=== PATIENT | male | born 1975 | race Caucasian/White ===

== ENCOUNTER 2024-02-11 11:46 | Emergency (ER) | payer BC, OTHER ==
[2024-02-11 12:29] LABS: Absolute Eosinophils 0.1 K/uL (0-0.5); Absolute Lymphocytes (CBC) 1.6 K/uL (0.7-4.9); Absolute Monocytes 0.3 K/uL (0.1-1.3); Absolute Neutrophil 3.1 K/uL (1.8-8.0); Basophils % 0.4 % (0-1.3); Eosinophils % 2.2 % (0-4.4); Hematocrit 49.6 % (39.6-49.0); MCHC 34.2 g/dL (32.0-36.0); MCV 96.3 fL (80-100); MPV 7.6 fL (7.6-11.3); Monocytes % 6.6 % (3.3-12.3); Neutrophils % 59.8 % (41.7-73.7); Nucleated Red Blood Cells % 0.1 % (0-0); Platelets 283 thou/uL (152-406); RBC Red Blood Cell Count 5.15 M/uL (4.33-5.43); Red Cell Distribution Width 13.3 % (12.1-15.2)
[2024-02-11 12:34] LABS: PT Prothrombin Time 11.4 SECONDS (9.4-12.5); PTT, Activated Partial Thromb 33.2 SECONDS (24.3-36.9); Protime INR 1.02
[2024-02-11 12:55] LABS: ALT/SGPT 56 U/L (16-61); AST/SGOT 23 U/L (15-37); Albumin 4.2 g/dL (3.4-5.0); Albumin/Globulin Ratio 1.1 (1.1-1.8); Alkaline Phosphatase 67 U/L (45-117); Anion Gap 7.6 mEq/L (5.0-15.0); BUN Blood Urea Nitrogen 17 mg/dL (7-18); Bicarbonate 28 mEq/L (21-32); Bilirubin Total 0.6 mg/dL (0.2-1.0); Globulin 3.8 g/dL (2.3-3.5); Glomerular Filtration Rate 81 ml/min (=/>90); Glucose Level 118 mg/dL (74-106); Potassium 3.6 mEq/L (3.5-5.1); Sodium Level 136 mEq/L (136-145)
[2024-02-11 12:56] LABS: Bilirubin Direct < 0.2 mg/dL (0-0.2); Bilirubin Indirect, Calculated 0.4 mg/dL (0.2-0.8)
--- NOTE | 2024-02-11 14:39 | EDPHYS ---
Physician Documentation [facility] Name: Jimmy Patel Age: 48 yrs Sex: Male : 1975 Arrival Date: 02/11/2024 Time: 11:46 Bed 20 Private MD: ED Physician Arvind Reynolds HPI: 02/10 14:17 This 48 yrs old Male presents to ER via EMS with complaints of Suicidal Ideation. rn 14:17 The patient presents to the emergency department with depression, suicide ideation. rn Onset: The symptoms/episode began/occurred this morning. Severity of symptoms: At their worst the symptoms were moderate in the emergency department the symptoms are unchanged. The patient has experienced similar episodes in the past. Patient reports suicidal ideations and took several of his prescription pills this morning around 6 to 7 AM. Intent was to kill himself. Reports has hang himself in the past. Denies any fever or chills. No head injury. No focal neurological deficit. Feels a little sleepy but otherwise feels okay. States took multiple propranolol tablets at 6 AM.. Historical: - Home Meds: 12:08 propranolol 10 mg Oral tablet 1 tab 2 times per day [Active]; modafinil 100 mg oral mb9 tablet [Active]; lorazepam Oral [Active]; 19:30 citalopram 40 mg tablet [Active]; rg5 19:31 lamotrigine 250 mg oral Tablet, Extended Release 24 hr 1 tab [Active]; rg5 19:33 aripiprazole 5 mg oral tablet [Active]; rg5 - PMHx: 12:08 Hypertensive disorder; Bipolar disorder; Depressive disorder; mb9 - PSHx: 12:08 None; mb9 - Immunization history:: Adult Immunizations up to date. - Infectious Disease History:: Denies. - Social history:: Smoking status: Patient denies any tobacco usage or history of. - Family history:: not pertinent. - Hospitalizations: : No recent hospitalization is reported. ROS: 14:17 Constitutional: Negative for fever, chills, and weight loss, Eyes: Negative for injury, rn pain, redness, and discharge, Neck: Negative for injury, pain, and swelling, Cardiovascular: Negative for chest pain, palpitations, and edema, Respiratory: Negative for shortness of breath, cough, wheezing, and pleuritic chest pain, Abdomen/GI: Negative for abdominal pain, nausea, vomiting, diarrhea, and constipation, Back: Negative for injury and pain, MS/Extremity: Negative for injury and deformity, Skin: Negative for injury, rash, and discoloration, Neuro: Negative for headache, weakness, numbness, tingling, and seizure, Psych: Positive for suicidal ideations and depression Exam: 14:17 Constitutional: This is a well developed, well nourished patient who is awake, alert, rn and in no acute distress. Head/Face: Normocephalic, atraumatic. Eyes: Pupils equal round and reactive to light, extra-ocular motions intact. ENT: Dry mucous membranes Neck: No meningismus Chest/axilla: Normal chest wall appearance and motion. Nontender with no deformity. No lesions are appreciated. Cardiovascular: Regular rate and rhythm. No pulse deficits. Respiratory: No increased work of breathing, no retractions or nasal flaring. Abdomen/GI: Soft, non-tender MS/ Extremity: Pulses equal, no cyanosis. Neurovascular intact. Full, normal range of motion. Equal circumference. Neuro: Awake and alert, GCS 15, oriented to person, place, time, and situation. Cranial nerves II-XII grossly intact. Motor strength 5/5 in all extremities. Sensory grossly intact. Cerebellar exam normal. 16:20 ECG was reviewed by the Attending Physician. rn Vital Signs: 11:49 BP 113 / 84; Pulse 73; Resp 16; Temp 98; Pulse Ox 100% on R/A; Weight 89.81 kg; Height mb9 6 ft. 0 in. ; Pain 0/10; 12:26 BP 110 / 78; Pulse 71; Resp 15; Pulse Ox 100% on R/A; mb9 13:18 BP 107 / 79; Pulse 70; Resp 15; Pulse Ox 100% on R/A; mb9 14:58 BP 111 / 80; Pulse 67; Resp 16; Pulse Ox 100% on R/A; mb9 16:14 BP 120 / 82; Pulse 62; Resp 16; Pulse Ox 100% on R/A; mb9 17:58 BP 114 / 80; Pulse 71; Resp 16; Pulse Ox 100% on R/A; mb9 18:56 BP 112 / 72; Pulse 69; Resp 16; Pulse Ox 96% on R/A; mb9 19:00 BP 114 / 75; Pulse 75; Resp 13; Pulse Ox 97% on R/A; rg5 20:00 BP 118 / 82; Pulse 96; Resp 14; Pulse Ox 96% on R/A; rg5 21:00 BP 105 / 68; Pulse 63; Resp 17; Pulse Ox 94% on R/A; rg5 22:00 BP 94 / 67; Pulse 54; Resp 16; Pulse Ox 96% on R/A; rg5 23:00 BP 104 / 75; Pulse 53; Resp 17; Pulse Ox 96% on R/A; rg5 1001 00:00 BP 92 / 64; Pulse 52; Resp 15; Pulse Ox 96% on R/A; rg5 01:00 BP 96 / 71; Pulse 49; Resp 13; Pulse Ox 96% on R/A; rg5 02:00 BP 97 / 66; Pulse 54; Resp 16; Pulse Ox 97% on R/A; rg5 03:00 BP 92 / 64; Pulse 60; Resp 15; Pulse Ox 95% on R/A; rg5 04:00 BP 96 / 67; Pulse 54; Resp 17; Pulse Ox 93% on R/A; rg5 05:00 BP 93 / 47; Pulse 54; Resp 14; Pulse Ox 94% on R/A; rg5 06:48 BP 112 / 63; Pulse 60; Resp 16; Pulse Ox 98% on R/A; Pain 0/10; rg5 12:15 BP 108 / 60; Pulse 60; Resp 16; Temp 98; Pulse Ox 100% ; mb9 12:38 BP 117 / 94; Pulse 63; Resp 16; Pulse Ox 100% on R/A; [facility] 02/10 11:49 Body Mass Index 26.85 (89.81 kg, 182.88 cm) [facility] 02/10 11:49 Pain Scale: Adult 9 06:48 Pain Scale: Adult [facility] MDM: 02/10 11:51 Patient medically screened. rn 14:37 Differential diagnosis: Suicidal ideation, depression. rn 14:38 Data reviewed: vital signs, nurses notes, lab test result(s), EKG, and as a result, I rn will admit patient. Consideration of Admission/Observation Patient was admitted/placed on observation. Escalation of care including admission/observation considered. Counseling: I had a detailed discussion with the patient and/or guardian regarding the historical points, exam findings, and any diagnostic results supporting the discharge/admit diagnosis, lab results, the need to transfer to another facility, [facility] does not immediately have the required specialist. 18:44 ED course: Patient is medically cleared for transfer. rn 02/10 11:54 Order name: Acetaminophen; Complete Time: 14:37 rn 02/10 11:54 Order name: Basic Metabolic Panel; Complete Time: 14:37 rn 02/10 11:54 Order name: CBC with Diff; Complete Time: 14:37 rn 02/10 11:54 Order name: ETOH Level; Complete Time: 14:37 rn 02/10 11:54 Order name: Hepatic Function; Complete Time: 14:37 rn 02/10 11:54 Order name: PT-INR; Complete Time: 14:37 rn 02/10 11:54 Order name: Ptt, Activated; Complete Time: 14:37 rn 02/10 11:54 Order name: Salicylate; Complete Time: 14:37 rn 02/10 11:54 Order name: Urinalysis w/ reflexes; Complete Time: 16:59 rn 02/10 11:54 Order name: Urine Drug Screen; Complete Time: 16:59 rn 02/10 16:59 Order name: ETOH Level; Complete Time: 18:44 rn 02/10 11:54 Order name: EKG; Complete Time: 11:54 rn 02/10 11:54 Order name: EKG - Nurse/Tech; Complete Time: 12:13 rn 02/10 11:54 Order name: IV Saline Lock; Complete Time: 12:13 rn 02/10 11:54 Order name: Labs collected and sent; Complete Time: 12:13 rn 02/10 11:54 Order name: Suicide Precautions; Complete Time: 12:13 rn 02/10 11:54 Order name: Suicide Screening ([place]); Complete Time: 12:13 rn EC:20 Rate is 71 beats/min. Rhythm is regular. QRS [place] is Normal. WI interval is normal. QRS rn interval is normal. QT interval is normal. No Q waves. T waves are Normal. Clinical impression: NSR w/ Non-specific ST/T Changes. Interpreted by me. Reviewed by me. Administered Medications: No medications were administered Disposition Summary: 02/11/24 14:38 Transfer Ordered Notes: Transfer Location: [facility] Facility rn Reason: Higher level of care rn Condition: Stable rn Problem: new rn Symptoms: are unchanged rn Accepting Physician: (02/12/24 12:41) shantell Diagnosis - Suicidal ideations rn Forms: - Medication Reconciliation Form rn - SBAR form rn Signatures: Dispatcher [employer] EDMS Arvind Reynolds MD MD rn Wilkerson, Candice Flores, RN RN mb9 Eran Jones, RN RN rg5 Corrections: (The following items were deleted from the chart) 11:54 11:54 ACETAMINOPHEN+C.LAB.BRZ ordered. EDMS EDMS 11:54 11:54 BASIC METABOLIC PANEL+C.LAB.BRZ ordered. EDMS EDMS 11:54 11:54 CBC+H.LAB.BRZ ordered. EDMS EDMS 11:54 11:54 ETHANOL+C.LAB.BRZ ordered. EDMS EDMS 11:54 11:54 HEPATIC FUNCTION+C.LAB.BRZ ordered. EDMS EDMS 11:54 11:54 PROTIME (+INR)+COAG.LAB.BRZ ordered. EDMS EDMS 11:54 11:54 PTT, ACTIVATED+COAG.LAB.BRZ ordered. EDMS EDMS 11:54 11:54 SALICYLATE+C.LAB.BRZ ordered. EDMS EDMS 11:54 11:54 Urinalysis+U.LAB.BRZ ordered. EDMS EDMS 11:54 11:54 URINE DRUG SCREEN+UC.LAB.BRZ ordered. EDMS EDMS 19:34 12:08 Allergies: No Known Allergies; mb9 rg5 19:34 19:30 Allergies: citalopram; rg5 rg5 02/11 12:41 02/10 14:38 rn mb9
--- NOTE | 2024-02-11 14:39 | ER ---
Nurse's Notes [facility] Name: Jimmy Patel Age: 48 yrs Sex: Male : 1975 Arrival Date: 02/11/2024 Time: 11:46 Bed 20 Private MD: Diagnosis: Suicidal ideations Presentation: 02/10 11:49 Chief complaint: EMS states: "[place], mb9 rupesh noted to family, and wanting to kill himself. Pt states at 0600 am he took 30 Propranolol, 4 Modafinil, and 6 Lorazepam, and had 4 whiskey/coke drinks. SUZANNE present on pt.". 11:49 Acuity: SHRUTHI 2 mb9 11:49 Coronavirus screen: Vaccine status: Patient reports receiving the 2nd dose of the covid mb9 vaccine. Ebola Screen: No symptoms or risks identified at this time. Initial Sepsis Screen: Does the patient meet any 2 criteria? No. Patient's initial sepsis screen is negative. Does the patient have a suspected source of infection? No. Patient's initial sepsis screen is negative. Risk Assessment: Do you want to hurt yourself or someone else? Patient reports desire/thoughts of hurting themselves or someone else. Provider notified. Onset of symptoms was February 11, 2024. 11:49 Method Of Arrival: EMS: [facility] mb9 Triage Assessment: 11:49 General: Appears distressed, Behavior is drowsy. mb9 11:49 Pain: Denies pain. EENT: No signs and/or symptoms were reported regarding the EENT mb9 system. Neuro: Tucker Agitation-Sedation Scale (RASS): -1 Drowsy Level of Consciousness is awake, alert, obeys commands, Oriented to person, place, time, situation. Cardiovascular: Patient's skin is warm and dry. Rhythm is regular. Respiratory: Airway is patent Respiratory effort is even, unlabored, Respiratory pattern is regular, symmetrical. GI: No signs and/or symptoms were reported involving the gastrointestinal system. : No signs and/or symptoms were reported regarding the genitourinary system. Derm: Skin is pink, warm \\T\\ dry. Musculoskeletal: Range of motion: intact in all extremities. Historical: - Home Meds: 12:08 propranolol 10 mg Oral tablet 1 tab 2 times per day [Active]; modafinil 100 mg oral mb9 tablet [Active]; lorazepam Oral [Active]; 19:30 citalopram 40 mg tablet [Active]; rg5 19:31 lamotrigine 250 mg oral Tablet, Extended Release 24 hr 1 tab [Active]; rg5 19:33 aripiprazole 5 mg oral tablet [Active]; rg5 - PMHx: 12:08 Hypertensive disorder; Bipolar disorder; Depressive disorder; mb9 - PSHx: 12:08 None; mb9 - Immunization history:: Adult Immunizations up to date. - Infectious Disease History:: Denies. - Social history:: Smoking status: Patient denies any tobacco usage or history of. - Family history:: not pertinent. - Hospitalizations: : No recent hospitalization is reported. Screenin:12 [facility] ED Fall Risk Assessment (Adult) History of falling in the last 3 months, mb9 including since admission No falls in past 3 months (0 pts) Confusion or Disorientation No (0 pts) Intoxicated or Sedated Yes (3 pts) Impaired Gait No (0 pts) Mobility Assist Device Used No (0 pt) Altered Elimination No (0 pt) Score/Fall Risk Level 3 or more points = High Risk Oriented to surroundings, Maintained a safe environment, Educated pt \\T\\ family on fall prevention, incl call for assistance when getting out of bed. Abuse screen: Denies threats or abuse. Nutritional screening: No deficits noted. Tuberculosis screening: No symptoms or risk factors identified. Assessment: 11:49 Reassessment: SI precautions in place. Sitter at bedside. mb9 12:00 Reassessment: Pt belongings sent with security along with checklist. 9 12:23 Reassessment: CONTACT WITH POISON CONTROL: LISE CASE # [id number]. RECOMMEND OBS FOR 8 bp HOUR POST INGESTION WITH MONITORING FOR EKG CHANGES AND HYPOTENSION. 12:49 Reassessment: Patient is alert, oriented x 3, equal unlabored respirations, skin mb9 warm/dry/pink. SI precautions in place. Sitter at bedside. 13:49 Reassessment: Patient appears in no apparent distress at this time. Patient is alert, mb9 oriented x 3, equal unlabored respirations, skin warm/dry/pink. SI precautions in place. Sitter at bedside. 14:49 Reassessment: Patient appears in no apparent distress at this time. Patient is alert, mb9 oriented x 3, equal unlabored respirations, skin warm/dry/pink. SI precautions in place. Sitter at bedside. 15:00 Reassessment: at bedside. mb9 15:49 Reassessment: Patient is alert, oriented x 3, equal unlabored respirations, skin mb9 warm/dry/pink. SI precautions in place. Sitter at bedside. 16:49 Reassessment: Patient appears in no apparent distress at this time. Patient is alert, mb9 oriented x 3, equal unlabored respirations, skin warm/dry/pink. SI precautions in place. Sitter at bedside. 17:49 Reassessment: Patient is alert, oriented x 3, equal unlabored respirations, skin mb9 warm/dry/pink. SI precautions in place. Sitter at bedside. 18:49 Reassessment: Patient appears in no apparent distress at this time. Patient is alert, mb9 oriented x 3, equal unlabored respirations, skin warm/dry/pink. SI precautions in place. Sitter at bedside. 19:05 General: Appears in no apparent distress. comfortable, Behavior is calm, cooperative. rg5 19:05 Pain: Denies pain. Neuro: Reports suicidal ideation. Cardiovascular: Patient's skin is rg5 warm and dry. Respiratory: Airway is patent Trachea midline Respiratory effort is even, unlabored, Respiratory pattern is regular, symmetrical. GI: Abdomen is round non-distended. : No signs and/or symptoms were reported regarding the genitourinary system. EENT: No deficits noted. Derm: Skin is intact, Skin is dry, Skin is normal, Skin temperature is warm. Musculoskeletal: Circulation, motion, and sensation intact. Range of motion: intact in all extremities. 19:10 Reassessment: Nisreen Jorge - [phone]. rg5 20:00 Reassessment: No changes from previously documented assessment. Patient and/or family rg5 updated on plan of care and expected duration. Pain level reassessed. Patient is alert, oriented x 3, equal unlabored respirations, skin warm/dry/pink. 22:00 Reassessment: No changes from previously documented assessment. Patient and/or family rg5 updated on plan of care and expected duration. Pain level reassessed. Patient is alert, oriented x 3, equal unlabored respirations, skin warm/dry/pink. 02/11 00:00 Reassessment: Patient and/or family updated on plan of care and expected duration. Pain rg5 level reassessed. Respiratory: Airway is patent Trachea midline Respiratory effort is even, unlabored, Respiratory pattern is regular, symmetrical. 02:00 Reassessment: No changes from previously documented assessment. Patient and/or family rg5 updated on plan of care and expected duration. Pain level reassessed. Respiratory: Respiratory effort is even, unlabored, Respiratory pattern is regular, symmetrical. 04:00 Reassessment: No changes from previously documented assessment. Patient and/or family rg5 updated on plan of care and expected duration. Pain level reassessed. 07:00 Reassessment: Patient and/or family updated on plan of care and expected duration. Pain mb9 level reassessed. Patient is alert, oriented x 3, equal unlabored respirations, skin warm/dry/pink. SI precautions in place. 08:00 Reassessment: No changes from previously documented assessment. Si precautions in mb9 place. Sitter at bedside. 09:00 Reassessment: Patient and/or family updated on plan of care and expected duration. Pain mb9 level reassessed. Si precautions in place. Sitter at bedside. 10:00 Reassessment: Patient is alert, oriented x 3, equal unlabored respirations, skin mb9 warm/dry/pink. Si precautions in place. Sitter at bedside. 10:53 Reassessment: Nurse to nurse with Kandice from [facility]. mb9 11:00 Reassessment: Patient and/or family updated on plan of care and expected duration. Pain mb9 level reassessed. Si precautions in place. Sitter at bedside. 12:00 Reassessment: Patient and/or family updated on plan of care and expected duration. Pain mb9 level reassessed. Patient is alert, oriented x 3, equal unlabored respirations, skin warm/dry/pink. SI precautions in place. Sitter at bedside. 12:38 Reassessment: Report given to [facility]. mb9 Vital Signs: 02/10 11:49 BP 113 / 84; Pulse 73; Resp 16; Temp 98; Pulse Ox 100% on R/A; Weight 89.81 kg; Height mb9 6 ft. 0 in. ; Pain 0/10; 12:26 BP 110 / 78; Pulse 71; Resp 15; Pulse Ox 100% on R/A; mb9 13:18 BP 107 / 79; Pulse 70; Resp 15; Pulse Ox 100% on R/A; mb9 14:58 BP 111 / 80; Pulse 67; Resp 16; Pulse Ox 100% on R/A; mb9 16:14 BP 120 / 82; Pulse 62; Resp 16; Pulse Ox 100% on R/A; mb9 17:58 BP 114 / 80; Pulse 71; Resp 16; Pulse Ox 100% on R/A; mb9 18:56 BP 112 / 72; Pulse 69; Resp 16; Pulse Ox 96% on R/A; mb9 19:00 BP 114 / 75; Pulse 75; Resp 13; Pulse Ox 97% on R/A; rg5 20:00 BP 118 / 82; Pulse 96; Resp 14; Pulse Ox 96% on R/A; 5 21:00 BP 105 / 68; Pulse 63; Resp 17; Pulse Ox 94% on R/A; 5 22:00 BP 94 / 67; Pulse 54; Resp 16; Pulse Ox 96% on R/A; 5 23:00 BP 104 / 75; Pulse 53; Resp 17; Pulse Ox 96% on R/A; [facility] 10 00:00 BP 92 / 64; Pulse 52; Resp 15; Pulse Ox 96% on R/A; [facility] 01:00 BP 96 / 71; Pulse 49; Resp 13; Pulse Ox 96% on R/A; [facility] 02:00 BP 97 / 66; Pulse 54; Resp 16; Pulse Ox 97% on R/A; [facility] 03:00 BP 92 / 64; Pulse 60; Resp 15; Pulse Ox 95% on R/A; 5 04:00 BP 96 / 67; Pulse 54; Resp 17; Pulse Ox 93% on R/A; 5 05:00 BP 93 / 47; Pulse 54; Resp 14; Pulse Ox 94% on R/A; 5 06:48 BP 112 / 63; Pulse 60; Resp 16; Pulse Ox 98% on R/A; Pain 0/10; rg5 12:15 BP 108 / 60; Pulse 60; Resp 16; Temp 98; Pulse Ox 100% ; mb9 12:38 BP 117 / 94; Pulse 63; Resp 16; Pulse Ox 100% on R/A; 9 02/10 11:49 Body Mass Index 26.85 (89.81 kg, 182.88 cm) mb9 02/10 11:49 Pain Scale: Adult mb9 06:48 Pain Scale: Adult [facility] ED Course: 02/10 11:49 Patient arrived in ED. bd 11:49 Arm band placed on. mb9 11:51 Arvind Reynolds MD is Attending Physician. rn 12:00 EKG done, by rf technician. reviewed by Arvind Reynolds MD. mb9 12:02 Candice Clarke, CARLI is Primary Nurse. mb9 12:08 Triage completed. mb9 12:12 Placed in gown. sitter at bedside. Provided Education on: ER process. Client placed on mb9 continuous cardiac and pulse oximetry monitoring. NIBP monitoring applied. potline monitor on. 14:33 [place] [facility] 15:53 No provider procedures requiring assistance completed. mb9 16:13 Urinalysis w/ reflexes Sent. mb9 16:14 Urine Drug Screen Sent. mb9 16:14 Urine collected: clean catch specimen, clear. mb9 16:52 faxed chart to [facility]. bd 19:10 Resting quietly. Safety Checks: Personal items have been removed. Sitter present at [facility] this time. 19:10 Report given to CARLI Barillas. mb9 19:10 Door closed. Noise minimized. Warm blanket given. Patient is placed in psych hold. rg5 20:30 Appears to be sleeping. rg5 20:30 transfer approval from receiving facility. [facility] 21:51 Faxed pt clinicals to the following facilities for placement; [address] 02/11 07:00 Report received from CARLI Barillas. mb9 09:36 contacted [facility] to have a screener evaluate pt. bd 10:34 refaxed chart to [facility]. bd 11:07 [place] [facility] [place] admin approval given by adalberto Hyde. 11:46 IV discontinued, intact, bleeding controlled, No redness/swelling at site. Pressure mb9 dressing applied. Administered Medications: No medications were administered Medication: 02/10 12:13 VIS not applicable for this client. mb9 Outcome: 14:38 ER care complete, transfer ordered by . rn 02/11 11:47 Transferred by ground EMS Transfer form completed. X-rays sent w/ patient. Note: [place] [facility] Condition: stable Instructed on the need for transfer, 12:41 Patient left the ED. mb9 Signatures: Ruthie Chawla Roman, MD MD rn Peltier, Brian RN RN Candice Landin RN RN mb9 Kyle, Michelle rv1 Eran Jones RN RN rg5 Corrections: (The following items were deleted from the chart) 02/10 12:10 11:49 Chief complaint: EMS states: "[place], mb9 rupesh noted to family, and wanting to kill himself. Pt states at 0600 am he took 30 Propranolol, 4 Modafinil, and 6 Tolazalpam, and had 4 whiskey/coke drinks. SUZANNE present on pt." mb9 19:34 12:08 Allergies: No Known Allergies; mb9 rg5 19:34 19:30 Allergies: citalopram; rg5 rg5
[2024-02-11 16:28] LABS: Specific Gravity 1.021 (1.005-1.030); Sqamous Epithelial <5 /HPF (None Seen); Urine Bacteria None Seen /HPF (<20); Urine Bilirubin NEGATIVE (Negative); Urine Blood Negative (Negative); Urine Clarity Clear (Clear); Urine Color Light-Yellow (Yellow); Urine Crystals Unidentified Few /HPF (None Seen); Urine Culture Reflex Order NOT NEEDED; Urine Glucose NEGATIVE (Negative); Urine Ketones TRACE (Negative); Urine Microscopic Reflex YN ORDER UMIC; Urine Mucus 1+ /HPF (None Seen); Urine Nitrite NEGATIVE (Negative); Urine Protein NEGATIVE (Negative); Urine RBC <5 /HPF (None Seen); Urine Urobilinogen Normal (Normal); Urine WBC <5 /HPF (<5); Urine pH 5.5 (5.0-7.0)
[2024-02-11 16:43] LABS: Barbiturates NEGATIVE (NEGATIVE); Benzodiazepines NEGATIVE (NEGATIVE); Cocaine NEGATIVE (NEGATIVE); METHAMPHETAM NEGATIVE (NEGATIVE); Methadone NEGATIVE (NEGATIVE); Opiates NEGATIVE (NEGATIVE); Phencyclidine NEGATIVE (NEGATIVE); THC Cannibis NEGATIVE (NEGATIVE)
[2024-02-12 12:52] VITALS: TEMP 98
[2024-02-12 13:15] VITALS: O2SAT 100
[2024-02-12 13:16] VITALS: BP 117/94
--- NOTE | 2024-02-13 13:04 | EKG ---
Test Date: 2024-02-11 Test Time: 11:52:03 Property Utilization Manager: VIVEK MEASUREMENT RESULTS: Intervals: Rate: 71 WI: 162 QRSD: 92 QT: 364 QTc: 395 [place]: P: 62 WI: 162 QRS: 49 T: 33 INTERPRETIVE STATEMENTS: Normal sinus rhythm Nonspecific ST abnormality Abnormal ECG No previous ECG available for comparison Electronically Signed On 02-13-24 12:57:12 CDT by Pasquale Ruelas
== END 2024-02-12 12:41 ==
LOC: ER 11:46
DX: R45.851 Suicidal ideations (principal); F31.9 Bipolar disorder, unspecified
CPT/HCPCS: 36415; 80048; 80076; 80143; 80179; 80307; 81001; 82077; 85025; 85610; 85730; 93005; 99285